=== PATIENT | female | born 1985 | race Caucasian/White ===

== ENCOUNTER 2023-11-27 23:20 | Inpatient (IN) | payer OTHER, SELFPAY ==
[2023-11-27 19:46] VITALS: BP 114/77
[2023-11-27 20:18] LABS: Urine Albumin 1+ (Neg - Trace); Urine Bilirubin 1+ (Negative); Urine Character Clear (Clear); Urine Color Brown; Urine Glucose Negative (Negative); Urine Ketone 1+ (Negative); Urine Leukocyte 1+ (Negative); Urine Nitrite Positive (Negative); Urine Occult Blood 2+ (Negative); Urine Urobilinogen 3+ (Neg - 1+)
[2023-11-27 20:24] LABS: % Basophils 0.3 % (0-2); % Eosinophils 0.2 % (0-6); % Immature Granulocytes 0.4 % (0-0.5); % Lymphocytes 7.8 % (20.5-51.1); % Neutrophils 78.3 % (42.2-75.2); Absolute Basophils 0.1 10^3/uL (0-0.2); Absolute Immature Granulocytes 0.1 10^3/uL (0-0.05); Absolute Lymphocytes 1.4 10^3/uL (1.2-3.4); Absolute Monocytes 2.3 10^3/uL (0.1-0.6); Absolute Neutrophils 13.7 10^3/uL (1.4-6.5); Hematocrit 39.7 % (37.0-47.0); Hemoglobin 13.8 g/dL (12.0-16.0); Mean Corp Hgb Conc. 34.8 g/dL (33.0-37.0); Mean Corpuscular Hgb 30.7 pg (27.0-31.0); Mean Corpuscular Volume 88.2 fL (81.0-99.0); Nucleated Red Blood Cells % 0 %; Platelet Count 253 10^3/uL (130-400); Red Cell Dist. Width 14.3 % (11.5-14.5); White Blood Cell Count 17.4 10^3/uL (4.8-10.8)
[2023-11-27 20:26] LABS: Urine Squamous Cell >30 /LPF (Few)
[2023-11-27 20:27] LABS: Urine Mucus Moderate
[2023-11-27 20:43] LABS: ALT (SGPT) 17 U/L (0-35); AST (SGOT) 23 U/L (14-36); Albumin 4.6 g/dl (3.5-5.0); Alkaline Phosphatase 60 U/L (38-126); Blood Urea Nitrogen 13 mg/dl (7-17); Calcium 9.2 mg/dl (8.4-10.2); Carbon Dioxide 27 mmol/L (22-30); Chloride 100 mmol/L (98-107); Glucose 118 mg/dl (70-99); Lipase 104 U/L (23-300); Potassium 4.2 mmol/L (3.5-5.1); Sodium 134 mmol/L (135-145); Total Bilirubin 0.5 mg/dl (0.2-1.3); Total Protein 7.2 g/dl (6.3-8.2); eGFR > 60.00
[2023-11-27 20:50] VITALS: BMI 19.9
[2023-11-27 20:54] VITALS: BP 104/76
[2023-11-27 21:00] VITALS: BP 108/77
[2023-11-27 21:39] LABS: HCG, Serum Qualitative Screen Negative
[2023-11-27] MEDS: MORPHINE SULFATE 4 MG IV (21:45)
[2023-11-27] MEDS: ZOFRAN 4 MG IV (21:45)
[2023-11-27] MEDS: NSS 1000 IV (21:46)
[2023-11-27] MEDS: TYLENOL 650 MG PO (21:52)
[2023-11-27 22:00] VITALS: BP 105/74
--- NOTE | 2023-11-27 23:07 | ED.GENMED ---
History of Present Illness
General
Chief Complaint: Abdominal Pain
Source: patient and spouse
Exam Limitations: none
Time Seen by Provider: 11/27/23 21:11
Nursing documentation reviewed up to this point in time: agreed with
History of Present Illness
History of Present Illness:
38-year-old female 10 months not breast-feeding presents with abdominal pain onset a day or so ago mid abdomen into the lower abdomen with nausea decreased appetite, daughter had less severe diarrheal illness a week or so ago patient
thought she could have caught that from her, she does not drink or smoke, has seizures, takes Depakote no other med, no prior abdominal surgeries so has her appendix and gallbladder has gotten her menstrual cycle since giving
Past History
Past History
ED Past Medical History: Seizures
ED Past Surgical History: None and Orthopedic; Negative Appendectomy or Cholecystectomy
Social History
Tobacco: Non-smoker
Alcohol: None
Drug: None
Personal:
Living: with family
Employment: Employed
Review of Systems
Review of Systems
All Other Systems: Not applicable
Constitutional: Reports fever and fatigue
EENT: Reports no symptoms
Respiratory: Reports no symptoms
Cardiac: Denies chest pain
ABD/GI: Reports abdominal pain, nausea, vomiting and anorexia
: Reports no symptoms
Musculoskeletal: Reports no symptoms
Skin: Reports no symptoms
Phy Exam
Physical Exam
Physical Exam:
Physical Exam
General: Uncomfortable appearing female
Neck: Lips are dry
Heart: Tachycardic
Lungs: no acute respiratory distress. clear bilaterally
Abdomen: Tender in the right lower abdomen
Neuro: alert and oriented. no focal neurological deficits
Skin: no rash
Psychiatric: well kept. interactive and cooperative
Extremities: no edema.
Course
Orders/Labs/Results
Orders:
Orders
11/27/23 20:13
Urinalysis Reflex To Culture Urgent
Date Specimen was Collected: 11/27/23
Time Specimen was Collected: 19:59
Urine Microscopic Reflex Cult Urgent
Urine Culture Urgent
YUSEF Source: U
Specimen Description:
Date Specimen was Collected: 11/27/23
Time Specimen was Collected: 19:59
11/27/23 20:17
Complete Blood Count/With Diff Urgent
Comprehensive Metabolic Panel Urgent
HCG, Serum Qualitative Screen Urgent
Comment: ADDON
Lipase Urgent
11/27/23 20:57
Add On- LAB Urgent
Tests Added?: serum qualitative hcg
11/27/23 21:35
CT Abd/Pel (IV only)-DH only Urgent
Comment:
Reason For Exam: rlq pain
0.9% Sodium Chloride 1000 ml [Nss] 1,000 ml IV BOLUS
Morphine Sulfate 4 mg IV NOW STA
Ondansetron Injectable [Zofran] 4 mg IV NOW STA
11/27/23 21:50
Acetaminophen [Tylenol] 650 mg PO NOW STA
11/27/23 23:00
Flush (0.9% Sodium Chloride) [Flush (Nss)] See Dose Instructions IV PER PROTOCOL
Piperacillin/Tazo 3.375 Gram [Zosyn] 3.375 gram in 50 ml IV NOW
11/27/23 23:05
Add On- LAB Urgent
Tests Added?: depakene
11/27/23 23:12
Depakane Urgent
Comment: COLLECT. PLAIN RED.
11/27/23 23:30
Admit/Transfer Patient As Directed
Co-Sign Provider:
Level of Care: Inpatient admission
Assign to:: Medical/Surgical
Physician / Group: Aris Rincon
Diagnosis: Acute Appendicitis
Reason for Hospitalization: IV medications
Expected length of stay greater than two midnights?: No
ELOS- Estimated Length of Stay in days: 2
I certify the patient meets the requirements for IP care: Yes
11/27/23 23:32
Code Status As Directed
Resuscitation Status: Full Code
Abnormal Lab Results
11/27/23 11/27/23
20:13 20:17
WBC 17.4 H 10^3/uL
(4.8-10.8)
Abs Immat Gran (auto) 0.1 H 10^3/uL
(0-0.05)
Absolute Neuts (auto) 13.7 H 10^3/uL
(1.4-6.5)
Absolute Monos (auto) 2.3 H 10^3/uL
(0.1-0.6)
Neutrophils % 78.3 H %
(42.2-75.2)
Lymphocytes % 7.8 L %
(20.5-51.1)
Monocytes % 13.0 H %
(1.7-9.3)
Sodium 134 L mmol/L
(135-145)
Glucose 118 H mg/dl
(70-99)
Urine Ketones 1+ A
(Negative)
Ur Occult Blood Reflex 2+ A
(Negative)
Urine Nitrite (Reflex) Positive A
(Negative)
Urine Bilirubin 1+ A
(Negative)
Urine Urobilinogen 3+ A
(Neg - 1+)
Leukocyte Esterase Rfl 1+ A
(Negative)
Urine RBC 7-10 A /HPF
(0-2)
Urine Albumin (Reflex) 1+ A
(Neg - Trace)
11/27/23 20:17
11/27/23 20:17
Vital Signs
Initial and Last Documented VS:
Initial Vital Signs
Temp Pulse Resp BP Pulse Ox
98.9 F 127 18 114/77 98
11/27/23 19:46 11/27/23 19:46 11/27/23 19:46 11/27/23 19:46 11/27/23 19:46
Last Documented Vital Signs
Temp Pulse Resp BP Pulse Ox
100.4 F H 115 18 104/76 97
11/27/23 21:48 11/27/23 20:59 11/27/23 20:58 11/27/23 20:54 11/27/23 20:55
MDM/Problems Addressed
Differential Diagnosis Includes:
Appendicitis enteritis biliary colic ovarian pathology UTI
MDM/Problems Addressed:
Abdominal pain
Chronic conditions affecting care: Neurological disorder
Acute Exacerbation and/or Progression of Chronic Illness: Neurological disorder
*Radiology
Radiology exam reviewed: other ([facility] radi[facility] report)
*Pulse Oximetry
Patient hypoxic: no
*Firefighting Equipment Specialist Interpretation
Rate: Firefighting Equipment Specialist- N/A
*Critical Care Note
Total Time (30-74mins, 75-104mins- exclusive of procedures): Not Applicable
Update Note
Update Note:
Update history appears consistent with appendicitis, labs noted CT noted reviewed with vision radiology reviewed with general surgery patient tells me he does have seizures, takes Depakote and another med will confirm with dose she takes, will check
Depakote level
ED Attending Note
-
Portions of this chart may have been created with voice recognition software.� Occasional wrong word or��sound alike� substitutions may have occurred due to the inherent limitations of voice recognition software.
Discharge Plan
Departure
Patient Disposition: Admit
Date of Disposition: 11/27/23
Time of Disposition: 23:10
Admit to: Med/Surg
Admit to doctor: Mckenzie
Presentation/result/management discussed w/ accepting MD/DO: MARGY
Condition: Good
Covid-19: Not Applicable
Discharge Problem:
Appendicitis
Referrals:
Poly Fraga MD [Family Provider] -
Interventions
Interventions:
*Risk Screen - Suicide Last Done: 11/27/23 20:50
*General Assessment Last Done: 11/27/23 19:51
*Neglect/Abuse Screening Last Done: 11/27/23 20:50
ED- Fall Risk Assessment Last Done: 11/27/23 20:58
*ED COVID-19 Vaccine History Last Done: 11/27/23 19:51
NC-Txqtyb-Izsvigdmmb Assessment Last Done: 11/27/23 20:58
Discharge Date and Time
Print Language: CHINESE
[2023-11-27] MEDS: ZOSYN 50 IV (23:41)
[2023-11-28] VITALS (15 sets, daily range): BP systolic 91–119; BP diastolic 58–71; BMI 19.9
--- NOTE | 2023-11-28 00:35 | HPS.HSE ---
Addendum entered and electronically signed by Aris Rincon MD 11/28/23 08:35:
Patient seen and examined independently of admitting nurse practitioner. Agree with documented H&P.
38-year-old female with medical history of only notable for seizures presenting with acute onset of abdominal early Wednesday nausea vomiting. Symptoms persisted Wednesday day with worsening pain localized to the right lower quadrant and
suprapubic area prompting ER evaluation confirming appendicitis
No significant past abdominal surgical history
Temp 100.1, heart rate 107 BP stable
No acute distress but acutely ill-appearing
ABD: Softly protuberant/distended, tenderness to palpation localizing to the right lower quadrant and suprapubic with voluntary guarding and rebound
CT imaging reviewed and interpreted. Distended dilated appendix with appendicoliths, surrounding inflammatory changes, and free fluid. Cannot rule out perforation
Assessment/plan: 38-year-old female with acute appendicitis and secondary SIRS (fever up to 100 .4, sinus tachycardia and leukocytosis) possible perforation; localized peritonitis
Discussed with patient at bedside. Reviewed indications for appendectomy. Patient in agreement to proceed with surgery for definitive management. Laparoscopic appendectomy was reviewed in detail including the operative technique and and potential
operative findings with their management (perforation requiring washout and drain placement). Discussed benefits of surgery and risks such as but not limited to bleeding, infectious or wound related complications, iatrogenic injury to surrounding
viscera. We discussed the variable timeframe of postoperative recovery and hospitalization pending operative findings.
Any of the patient's or her 's concerns or questions were fully addressed and informed consent was obtained.
Patient on the OR schedule for laparoscopic appendectomy today
N.p.o.
IV fluids
Zosyn
Continue home epilepsy medications at their regular dosage and schedule
Original Note:
Family Physician
-
Family Physician: Poly Fraga
Chief Complaint
-
'abdomen pain'
History of Present Illness
38 y/o patient with PMH of Epilepsy, presents to ER with c/o abdomen pain. Reports 'cramp' like pain at mid abdomen started Wednesday around 3 AM associated with nausea, vomiting x 3 and decreased appetite. Patient took Tylenol and Motrin with no
relief. Last BM 11/26 with no blood in stool or urine. Denies fever, chills, shortness of breath or chest pain at present.
Medical History
Past Medical History
Past Medical History: Reports Seizures
Past Surgical History: Reports Other
Additional Past Surgical History:
D&E
Dental surgery
Social History
Tobacco: Non-smoker
Alcohol: None
Drug: None
Living: With Family
Family History
Family History: Not pertinent
Allergies / Home Medications
Allergies reflects when Allergies were last updated in [employer].
Home Medications with original date entered in [employer]
Allergy/Medication List:
Allergies
Allergy/AdvReac Type Severity Reaction Status Date / Time
No Known Allergies Allergy Unverified 11/27/23 19:54
Home Medications
divalproex 500 mg tablet,delayed release (Depakote) 750 mg PO BID 11/28/23
methsuximide 300 mg capsule (Celontin) 300 mg PO BID 11/28/23
methsuximide 300 mg capsule (Celontin) 600 mg PO QPM 11/28/23
Review of Systems
-
History Source: Patient
A 12 point ROS was completed and negative except as noted: Yes
Constitutional: Reports No Symptoms
EENT: Reports No Symptoms
Respiratory: Reports No Symptoms
Cardiac: Reports No Symptoms
Abdomen/GI: Reports Abdominal Pain and Nausea
: Reports No Symptoms
Musculoskeletal: Reports No Symptoms
Skin: Reports No Symptoms
Neurological: Reports No Symptoms
Endocrine: Reports No Symptoms
Hematologic/Lymphatic: Reports No Symptoms
Psych: Reports No Symptoms
Physical Exam
Vital Signs
Vital Signs
Temp Pulse Resp BP Pulse Ox
100.4 F H 115 18 104/65 94
11/27/23 21:48 11/27/23 20:59 11/27/23 20:58 11/28/23 00:24 11/28/23 00:25
Physical Exam
General: Well Developed, Well Nourished and No Apparent Distress
HEENT: NormoCephalic, Moist mucous membranes and Atraumatic
Respiratory: Clear and Non Labored Respirations
Cardiac: S1/S2 and Tachycardia
Breast: Deferred by me
GI: Soft, Non Distended, Normal Bowel Sounds and Tender (RLQ, + MCburney)
Rectal: Deferred by Provider
Genito-urinary: Deferred by me
Musculoskeletal: No Clubbing, No Cyanosis and No Edema
Skin: Warm, Dry and Rash
Neuro: Awake, AO x 3 and Nonfocal/grossly intact
Hematologic/Lymphatic: No Lymphadenopathy
Psych: Calm and Intact Judgment/Insight
Laboratory Results
-
11/27/23 20:17
11/27/23 20:17
Laboratory Results
Total Bilirubin 0.5 mg/dl (0.2-1.3) 11/27/23 20:17
AST 23 U/L (14-36) 11/27/23 20:17
ALT 17 U/L (0-35) 11/27/23 20:17
Alkaline Phosphatase 60 U/L (38-126) 11/27/23 20:17
Lipase 104 U/L (23-300) 11/27/23 20:17
Data Reviewed
-
CT Scan: Report Reviewed by me
Lab Data: Labs Reviewed by me
Impression/Plan
-
38 y/o patient with complain of Abdomen pain
# Abdomen pain likely due to Acute Appendicitis
-CT A/P Acute appendicitis with dilation of fluid filled appendix measuring with 13mm, extensive surrounding inflammatory stranding and edema and with two proximal intraluminal appendicitis.
extensive surrounding edema likely representing perforated acute appendicitis.
- possible superimposed cystitis, will collect UA
-WBC: 17.4
-Fever 100.4
-Admit to Dr. Rincon-aware of CT AP results
-Med surg
-Continue Zosyn
-Continue IV fluids
-Continue Zofran IV
-Continue IV morphine for pain
-Tyelnol as needed for fever
-NPO
# Hx of Seizures
- check Depakote level, hold Depakote now
-continue Celontin
-IV Ativan prn Seizures
-Medications reviewed with pharmacist.
DVT prophylaxis: SCD's
Full Code
[2023-11-28 01:11] LABS: Depakane 85.3 ug/ml (50.0-120.0)
[2023-11-28] MEDS: NSS 1000 IV ×2 (01:32→16:10)
--- NOTE | 2023-11-28 02:01 | TRANSFER ---
Received pt to 2S at 0110 dx of acute appendicitis, spouse at bedside and will be spending the night. Pt is AAOx3, able to make all needs known. Pt drowsy from PRN pain med in ED. No c/o pain/ n/ v at present. Pt's spouse said he will be leaving
early in the morning to get pt's Celontin from home as it is not formulary here. Call unger within reach, bed in lowest position. Assessment ongoing.
[2023-11-28] MEDS: ZOSYN 50 IV ×3 (05:40→23:18)
[2023-11-28 06:44] LABS: Hematocrit 35.3 % (37.0-47.0); Hemoglobin 12.1 g/dL (12.0-16.0); Mean Corp Hgb Conc. 34.3 g/dL (33.0-37.0); Mean Corpuscular Hgb 31.7 pg (27.0-31.0); Mean Corpuscular Volume 92.4 fL (81.0-99.0); Mean Platelet Volume 9.9 fL (7.4-10.4); Platelet Count 212 10^3/uL (130-400); Red Blood Cell Count 3.82 10^6/uL (4.20-5.40); Red Cell Dist. Width 14.4 % (11.5-14.5); White Blood Cell Count 13.9 10^3/uL (4.8-10.8)
[2023-11-28 07:06] LABS: ALT (SGPT) 13 U/L (0-35); AST (SGOT) 19 U/L (14-36); Albumin 3.4 g/dl (3.5-5.0); Alkaline Phosphatase 62 U/L (38-126); Blood Urea Nitrogen 9 mg/dl (7-17); Calcium 8.3 mg/dl (8.4-10.2); Carbon Dioxide 25 mmol/L (22-30); Chloride 104 mmol/L (98-107); Estimated Creatinine Clearance 104 ml/min; Glucose 84 mg/dl (70-99); Potassium 3.7 mmol/L (3.5-5.1); Sodium 135 mmol/L (135-145); Total Bilirubin 0.6 mg/dl (0.2-1.3); Total Protein 5.8 g/dl (6.3-8.2); eGFR > 60.00
[2023-11-28] MEDS: DEPAKOTE (12 HR RELEASE) 500 MG PO ×2 (08:07→19:56)
[2023-11-28] MEDS: DEPAKOTE (12 HR RELEASE) 250 MG PO ×2 (08:11→19:56)
[2023-11-28] MEDS: NON-FORMULARY ITEM 300 MG PO ×2 (08:25→13:27)
[2023-11-28] MEDS: TYLENOL 650 MG PO (08:36)
--- NOTE | 2023-11-28 10:41 | W.SUR.PREOP ---
Pre-Operative Surgical Note
-
I have examined this patient prior to the performance of the scheduled procedure.
The patient's condition is unchanged from the time of the current History and
Physical and the patient is able to undergo the scheduled procedure.
--- NOTE | 2023-11-28 12:14 | W.IMMPOSTOP ---
Addendum entered and electronically signed by Aris Rincon MD 11/28/23 12:36:
#[id number]
Original Note:
Surgical Immed Post Op Note
-
Primary Surgeon: Mckenzie
Assisting Surgeon: Carrie SANTIAGO
Pre-op Diagnosis: Acute Appendicitis with localized peritonitis/sepsis
Post-op Diagnosis: Gangrenous appendicitis with contained perforation/abscess and localized peritonitis
Procedure Performed: Laparoscopic appendectomy
Anesthesia Type: GETA + 0.25% Marcaine
Specimen / Cultures: appendix
Estimated Blood Loss: 6mL
Complications: none immediate
Operative Findings: serous free fluid in the pelvis. walled off gangrenous appendix with contained perforation/abscess located btwn appendix/mesoappendix and inflammatory adhesions to peritoneal lining. appendectomy completed - ENMANUEL purple 45 to
take the base which was intact.
Plan: continue IV abx, clear liquids for comfort expecting ileus to monitor for
[2023-11-28] MEDS: ZOSYN IV (12:22)
--- NOTE | 2023-11-28 12:23 | SUR.PHASEI ---
Rec's sleepy in bed with HOB elevated low fowlers, IV infusing well, oriented x 3 by RN reassured, positioned for comfort, denies c/o
--- NOTE | 2023-11-28 12:32 | SUR.PHASEI ---
Arouses easily, quickly falls back to sleep
--- NOTE | 2023-11-28 12:48 | SUR.PHASEI ---
Arouses easily, ice chips given ramona well, inquiring about daughter, reassured, denies c/o, Dr Bolanos in
--- NOTE | 2023-11-28 14:49 | CM ---
Reviewed the chart notes and spoke with the patient and her spouse at the bedside. The patient resides with her spouse and 11 month old daughter in a one story home with one step to enter. The patient reports no DME/VN/SNF in the past. The
patient confirmed her pharmacy of choice is the [facility] [address] [facility]. CM continues to be available to patient/family and is monitoring medical plan for needs at discharge.
Plan: Discharge to home when medically stable. No anticipated needs identified.
[2023-11-28] MEDS: ZOFRAN 4 MG IV (17:53)
[2023-11-28] MEDS: NON-FORMULARY ITEM 600 MG PO (17:58)
[2023-11-28] MEDS: TORADOL 10 MG IV (21:59)
[2023-11-29] MEDS: NSS 1000 IV ×3 (01:35→15:11)
[2023-11-29 03:05] VITALS: BP 88/56
[2023-11-29 05:00] VITALS: BP 102/74
[2023-11-29] MEDS: ZOSYN 50 IV ×3 (05:16→17:16)
[2023-11-29] MEDS: TORADOL 10 MG IV ×2 (05:31→17:19)
[2023-11-29 06:07] VITALS: BMI 20.6
--- NOTE | 2023-11-29 06:07 | PTCARENOTE ---
Pt slept well overnight. PRN pain medication administered as ordered. IVF infusing as ordered. Will continue to monitor.
[2023-11-29 07:14] VITALS: BP 93/63
[2023-11-29 07:17] LABS: Hematocrit 30.2 % (37.0-47.0); Hemoglobin 10.3 g/dL (12.0-16.0); Mean Corp Hgb Conc. 34.1 g/dL (33.0-37.0); Mean Corpuscular Hgb 31.5 pg (27.0-31.0); Mean Corpuscular Volume 92.4 fL (81.0-99.0); Platelet Count 182 10^3/uL (130-400); Red Blood Cell Count 3.27 10^6/uL (4.20-5.40); White Blood Cell Count 8.3 10^3/uL (4.8-10.8)
[2023-11-29 07:30] LABS: Blood Urea Nitrogen 10 mg/dl (7-17); Calcium 7.8 mg/dl (8.4-10.2); Carbon Dioxide 25 mmol/L (22-30); Chloride 108 mmol/L (98-107); Estimated Creatinine Clearance 107 ml/min; Glucose 83 mg/dl (70-99); Potassium 3.4 mmol/L (3.5-5.1); Sodium 138 mmol/L (135-145); eGFR > 60.00
[2023-11-29] MEDS: DEPAKOTE (12 HR RELEASE) 500 MG PO ×2 (08:05→19:00)
[2023-11-29] MEDS: DEPAKOTE (12 HR RELEASE) 250 MG PO ×2 (08:06→19:00)
[2023-11-29] MEDS: NON-FORMULARY ITEM 300 MG PO ×2 (08:06→15:10)
[2023-11-29] MEDS: KCL 20 MEQ PO (08:06)
--- NOTE | 2023-11-29 08:49 | W.PN.GS2 ---
Addendum entered and electronically signed by Cesar Velasco MD 11/29/23 10:39:
I saw and examined the patient independently.
The resident's note was reviewed and I agree with the note, assessment and plan except where noted below.
Comment: 38-year-old female history of seizures postoperative day 1 from a laparoscopic appendectomy for perforated appendicitis. Fairly uncomfortable but expected postoperative course.
Will keep on clears, expect ileus.
Continue IV antibiotics, expect a 7-day course total.
Resume home meds.
Original Note:
Today's Communication / Plan
-
Continue clear liquid for now, advancement to regular if able to pass gas
Continue pain control
Assessment / Plan
-
38-year-old female with acute appendicitis and secondary SIRS (fever up to 100 .4, sinus tachycardia and leukocytosis) on admission.
CT imaging reviewed and interpreted. Distended dilated appendix with appendicolith, surrounding inflammatory changes, and free fluid.
Acute appendicitis(post op diagnosis: Gangrenous appendicitis with contained perforation/abscess with localized peritonitis)
-S/p laparoscopic appendectomy. POD#1
-Continue clear liquid diet for now, advance plan to regular diet if able to pass gas
-Continue IV Zosyn
-Pain control: Tylenol PO, IV Dilaudid as needed
-Encouraged early ambulation
-Continue home epilepsy medications at their regular dosage and schedule
-Discussed the risk of ileus and its management in detail.
-General surgery will continue to follow
Answered all questions.
Time Spent
Total Time Spent with Patient (in minutes): 20
Subjective Data
-
Date of Service: November 29, 2023
Interval events: patient s/p laparoscopic appendectomy-reported decrease in the right lower quadrant abdominal pain. Denies nausea/vomiting.
Objective Data
-
Intake and Output
11/28/23 11/29/23 11/30/23
06:59 06:59 06:59
Intake Total 400 / 400 5120 / 5120
Balance 400 / 400 5120 / 5120
Intake:
Oral fluids 2460 / 2460
IV fluids (Total) 350 / 350 2560 / 2560
normosol 100 / 100
IV piggybacks 50 / 50 100 / 100
Other:
Number of approximated MODERATE 2
amounts of urine
Number of approximated LARGE 1
amounts of urine
How many times incontinent 2
MODERATE amount urine
Vital Signs
Temp Pulse Resp BP Pulse Ox
99.4 F 86 16 93/63 98
11/29/23 07:14 11/29/23 07:14 11/29/23 07:14 11/29/23 07:14 11/29/23 07:14
Lab Results
11/29/23 05:48
11/29/23 05:48
Calcium 7.8 mg/dl (8.4-10.2) L 11/29/23 05:48
Total Bilirubin 0.6 mg/dl (0.2-1.3) 11/28/23 04:41
AST 19 U/L (14-36) 11/28/23 04:41
ALT 13 U/L (0-35) 11/28/23 04:41
Alkaline Phosphatase 62 U/L (38-126) 11/28/23 04:41
Total Protein 5.8 g/dl (6.3-8.2) L 11/28/23 04:41
Albumin 3.4 g/dl (3.5-5.0) L 11/28/23 04:41
Physical Exam
-
General: No apparent distress
Abdomen: Soft, nondistended, some tenderness to palpation near the incision sites. Incisions clean dry intact. Some voluntary guarding with suprapubic palpation due to incision pain/soreness
[2023-11-29 11:12] VITALS: BP 106/71
--- NOTE | 2023-11-29 14:50 | PN.CDI ---
CDI
- -
CDI:
Physician Documentation Request
Admit Date: 11/27/23 23:20
Dear Doctor Mckenzie,
Patient admitted with gangrenous appendicitis with contained perforation/abscess and localized peritonitis s/p laparoscopic appendectomy.
Hgb's documented below:
Laboratory Tests
11/27/23 11/28/23 11/29/23
20:17 04:41 05:48
Hgb 13.8 12.1 10.3 L
Based on the above, please clarify, in your progress note, which of the following is the most likely diagnosisyou are evaluating, monitoring and/or treating?
Acute blood loss anemia
Insignificant abnormal lab finding
Other
Use of terms such as suspected, likely, concern for, or probable (associated with a specific diagnosis that is being evaluated, monitored, or treated as if it exists) are acceptable and can be coded in the inpatient setting, when documented at the
time of discharge.
Thank you,
Kim BURT,RN,CCDS
CDI Specialist
Available via tiger text
Please use your independent medical judgment in providing your response.
[2023-11-29 15:04] VITALS: BP 110/77
--- NOTE | 2023-11-29 16:14 | CM ---
POD #1, Clear liquids, IV/AB. Anticipate home with no needs.
[2023-11-29] MEDS: NON-FORMULARY ITEM 600 MG PO (18:59)
[2023-11-29 23:05] VITALS: BP 109/79
[2023-11-30] MEDS: ZOSYN 50 IV ×2 (00:06→05:31)
[2023-11-30 03:05] VITALS: BP 99/65
[2023-11-30 03:55] VITALS: BP 99/65
[2023-11-30] MEDS: NSS 1000 IV (04:07)
[2023-11-30 07:10] VITALS: BP 113/75
--- NOTE | 2023-11-30 07:12 | W.PN.GS2 ---
Addendum entered and electronically signed by Aris Rincon MD 12/01/23 15:36:
Acute blood loss anemia secondary to operative blood loss and dilutional with IVFs
no signs of post op bleeding
Addendum entered and electronically signed by Jamel Leyva MD 11/30/23 08:37:
Patient seen and examined.
No major complaints. Pain overall well-controlled. No nausea or vomiting. Passing flatus and stools. Afebrile.
Gen: NAD
Abd: soft, tender overlying suprapubic incision, ND, non-peritoneal, incisions c/d/i - no erythema, ecchymosis or drainage
Patient is a 38 yo F POD#2 s/p laparoscopic appendectomy
Recovering well. No postoperative concerns. Tolerating diet and moving bowels, no evidence of ileus.
-- LRD
-- Pain control: Tylenol, Toradol, Oxycodone
-- HLIV
-- Abx: Zosyn, transition to Augmentin on DC
-- Continue home medications
-- DVT: Lovenox
-- DC today
Original Note:
Today's Communication / Plan
-
Discharge home on oral antibiotics: Augmentin
Assessment / Plan
-
38-year-old female S/p laparoscopic appendectomy POD#2 initially presented with acute appendicitis and secondary SIRS (fever up to 100 .4, sinus tachycardia and leukocytosis) on admission.
CT imaging reviewed and interpreted. Distended dilated appendix with appendicolith, surrounding inflammatory changes, and free fluid.
Acute appendicitis(post op diagnosis: Gangrenous appendicitis with contained perforation/abscess with localized peritonitis)
-continue Low residue in the hosp, advancement to regular diet as tolerated
-IV zosyn switched to PO Augmentin upon d/c ( 7 days of abx)
-Pain control: Tylenol PO prn
-Encouraged ambulation
-Continue home epilepsy medications at their regular dosage and schedule
-d/c today on oral abx
-Fu with General surgery OP in 2-3 weeks
Answered all questions.
Time Spent
Total Time Spent with Patient (in minutes): 20
Subjective Data
-
Date of Service: November 30, 2023
Interval events: Feeling better s/p surgery with some incision site discomfort. Denies nausea/vomiting. Able to pass flatus and stools.
Objective Data
-
Intake and Output
11/29/23 11/30/23 12/01/23
06:59 06:59 06:59
Intake Total 5120 / 5120 3680 / 3680
Balance 5120 / 5120 3680 / 3680
Intake:
Oral fluids 2460 / 2460 1560 / 1560
IV fluids (Total) 2560 / 2560 1920 / 1920
normosol 100 / 100
IV piggybacks 100 / 100 200 / 200
Other:
Number of approximated MODERATE 2 3
amounts of urine
How many times incontinent 2
MODERATE amount urine
Vital Signs
Temp Pulse Resp BP Pulse Ox
98.1 F 78 20 99/65 97
11/30/23 03:05 11/30/23 03:05 11/30/23 03:05 11/30/23 03:05 11/30/23 03:05
Lab Results
11/29/23 05:48
11/29/23 05:48
Calcium 7.8 mg/dl (8.4-10.2) L 11/29/23 05:48
Total Bilirubin 0.6 mg/dl (0.2-1.3) 11/28/23 04:41
AST 19 U/L (14-36) 11/28/23 04:41
ALT 13 U/L (0-35) 11/28/23 04:41
Alkaline Phosphatase 62 U/L (38-126) 11/28/23 04:41
Total Protein 5.8 g/dl (6.3-8.2) L 11/28/23 04:41
Albumin 3.4 g/dl (3.5-5.0) L 11/28/23 04:41
Physical Exam
-
General: No apparent distress
Abdomen: Soft, nondistended, some tenderness to palpation near the incision sites. Incisions clean dry intact. Some voluntary guarding with suprapubic palpation due to incision pain/soreness
[2023-11-30] MEDS: DEPAKOTE (12 HR RELEASE) 500 MG PO (08:22)
[2023-11-30] MEDS: NON-FORMULARY ITEM 300 MG PO (08:22)
[2023-11-30] MEDS: DEPAKOTE (12 HR RELEASE) 250 MG PO (08:22)
[2023-11-30] MEDS: TORADOL 10 MG IV (08:25)
--- NOTE | 2023-11-30 08:29 | W.DS.TRANS ---
Addendum entered and electronically signed by LILY Barajas 12/03/23 13:16:
dictated #[id number]
Original Note:
DC Summary - Rubber Down
-
Discharge Instructions:
Discharge Diagnosis/Procedures Acute appendicitis status post laparoscopic
appendectomy
Diet As tolerated
Activity No strenuous activity
Additional Activity Do not lift over 15 pounds for the next 2-3
weeks
Driving Restrictions Wait until comfortable twisting/off narcotics
Bathing Restrictions OK to Shower
Wound Care Your incisions are covered with glue which will
flake off on its own in 2-3 weeks. Wash your
incisions gently with soap and water, avoid
scrubbing or picking off the glue.
Instructions:
Stand-Alone Forms:
Changes to Home Medications: Yes
Discharge Medications:
DC Medications w/original date entered in [employer]
divalproex 500 mg tablet,delayed release (Depakote) 750 mg PO BID Seizures 11/28/23
methsuximide 300 mg capsule (Celontin) 300 mg PO BID Seizures 11/28/23
methsuximide 300 mg capsule (Celontin) 600 mg PO QPM Seizures 11/28/23
amoxicillin 875 mg-potassium clavulanate 125 mg tablet 1 tab PO Q12 antibiotic #8 tabs 11/29/23
acetaminophen 325 mg tablet 650 mg (2 x 325 mg) PO Q4HPRN PRN mild pain #1 tab 11/30/23
ibuprofen 200 mg tablet 400 - 600 mg (2 - 3 x 200 mg) PO Q6HPRN PRN moderate pain #1 tab 11/30/23
oxycodone 5 mg tablet 5 mg PO Q4HPRN PRN breakthrough/severe pain #10 tabs 11/30/23
Home Medication Changes
Pending Results: No
--- NOTE | 2023-11-30 11:06 | CM ---
Patient has been medically cleared for discharge to home with no additional clinical services. Patient has arranged for transport home.
[2023-11-30 11:07] VITALS: BP 115/83
== END 2023-11-30 12:30 | disposition home or self-care (01) | DRG 853 ==
LOC: 2 SOUTH 23:20
PROVIDERS: Emergency Medicine; Nurse Practitioner Gerontology; ADMITTING PHYSICIAN Surgery; ATTENDING PHYSICIAN Surgery; EMERGENCY PHYSICIAN Emergency Medicine; FAMILY PHYSICIAN Family Medicine
PROC: 0DTJ4ZZ Resection of Appendix, Percutaneous Endoscopic Approach (ICD-10-PCS; 2023-11-28)
DX: A41.9 Sepsis, unspecified organism (principal); K35.33 Acute appendicitis with perforation, localized peritonitis, and gangrene, with abscess; D62 Acute posthemorrhagic anemia; G40.909 Epilepsy, unspecified, not intractable, without status epilepticus; K38.1 Appendicular concretions; N73.6 Female pelvic peritoneal adhesions (postinfective); Z79.899 Other long term (current) drug therapy
CPT/HCPCS: 88304; 74177; 80048; 80053; 80164; 81003; 81015; 83690; 84703; 85025; 85027; 87086; 96361; 96374; 96375; 99285; C1776; Q9967